=== PATIENT | female | born 1990 | race Caucasian/White ===

== ENCOUNTER 2016-09-24 12:13 | Emergency (ER) | payer SELFPAY ==
[2016-09-24] MEDS ORDERED: IBUPROFEN 800 MG TABLET PO ONE (14:27)
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
[2016-09-24 17:23] VITALS: BP 110/74
== END 2016-09-24 17:21 | disposition home or self-care (01) ==
LOC: ER 12:13
PROC: 2W38X1Z Immobilization of Right Upper Extremity using Splint (ICD-10-PCS; principal; 2016-09-24)
DX: S59.901A Unspecified injury of right elbow, initial encounter (principal); M25.521 Pain in right elbow; V00.121A Fall from non-in-line roller-skates, initial encounter; Y93.51 Activity, roller skating (inline) and skateboarding
CPT/HCPCS: 99283

== ENCOUNTER 2017-07-10 05:51 | Emergency (ER) | payer MEDICAID ==
[2017-07-10 06:40] LABS: APPEARANCE,URINE CLOUDY; BILIRUBIN,URINE NEGATIVE (NEGATIVE); COLOR,URINE YELLOW; GLUCOSE, URINE NEGATIVE (NEGATIVE); KETONES,URINE NEGATIVE (NEGATIVE); LEUKOCYTE ESTERASE,URINE LARGE (NEGATIVE); NITRITE,URINE NEGATIVE (NEGATIVE); PROTEIN,URINE NEGATIVE (NEGATIVE); URINE SPECIFIC GRAVITY 1.002; UROBILINOGEN,URINE NEGATIVE mg/dL (<2.0)
[2017-07-10] MEDS ORDERED: CEPHALEXIN 500 MG CAPSULE PO ONE (08:01)
--- NOTE | 2017-07-10 08:03 | ER Document Report ---
ED General - General Chief Complaint: Pain With Urination Stated Complaint: DIFFICULTY URINATING Time Seen by Provider: 07/10/17 07:31 TRAVEL OUTSIDE OF THE [place] IN LAST 30 DAYS: No - HPI Patient complains to provider of: Dysuria Notes: Patient coming in for evaluation of this year. Patient states she is approximately 13 weeks . Currently is following up with the health department for her care. Patient is a . Denies any vaginal bleeding vaginal discharge. Denies any fevers chills denies any recent antibiotics. Patient resting comfortably upon my evaluation - Related Data Allergies/Adverse Reactions: No Known Allergies Allergy (Verified 09/24/16 13:02) Past Medical History - Social History Smoking Status: Unknown if Ever Smoked Family History: Reviewed & Not Pertinent Renal/ Medical History: Denies: Hx Peritoneal Dialysis Psychiatric Medical History: Reports: Hx Depression - Immunizations Hx Diphtheria, Pertussis, Tetanus Vaccination: Yes Review of Systems - Review of Systems Constitutional: No symptoms reported EENT: No symptoms reported Cardiovascular: No symptoms reported Respiratory: No symptoms reported Gastrointestinal: No symptoms reported Genitourinary: Dysuria Female Genitourinary: No symptoms reported Musculoskeletal: No symptoms reported Skin: No symptoms reported Hematologic/Lymphatic: No symptoms reported Neurological/Psychological: No symptoms reported -: Yes All other systems reviewed and negative Physical Exam - Vital signs Vitals: Temp Pulse Resp BP Pulse Ox 98.1 F 113 H 18 127/78 H 100 07/10/17 05:51 07/10/17 05:51 07/10/17 05:51 07/10/17 05:51 07/10/17 05:51 Interpretation: Normal - General General appearance: Appears well, Alert - HEENT Head: Normocephalic, Atraumatic Eyes: Normal Pupils: PERRL - Respiratory Respiratory status: No respiratory distress Chest status: Nontender Breath sounds: Normal Chest palpation: Normal - Cardiovascular Rhythm: Regular Heart sounds: Normal auscultation Murmur: No - Abdominal Inspection: Normal Distension: No distension Bowel sounds: Normal Tenderness: Nontender Organomegaly: No organomegaly - Back Back: Normal, Nontender - Extremities General upper extremity: Normal inspection, Nontender, Normal color, Normal ROM , Normal temperature General lower extremity: Normal inspection, Nontender, Normal color, Normal ROM , Normal temperature, Normal weight bearing. No: Marissa's sign - Neurological Neuro grossly intact: Yes Cognition: Normal Orientation: AAOx4 [place] Coma Scale Eye Opening: Spontaneous Francis Coma Scale Verbal: Oriented Francis Coma Scale Motor: Obeys Commands [place] Coma Scale Total: 15 Speech: Normal Motor strength normal: LUE, RUE, LLE, RLE Sensory: Normal - Psychological Associated symptoms: Normal affect, Normal mood - Skin Skin Temperature: Warm Skin Moisture: Dry Skin Color: Normal Course - Re-evaluation Re-evalutation: 07/10/17 14:29 This ultrasound shows IUP with heart rate of 150. Urinalysis shows signs of infection. Patient will be started on Keflex urine culture was sent. Patient is encouraged follow-up with the health department or [facility]. Patient also encouraged take Tylenol for pain. - Vital Signs Vital signs: Temp Pulse Resp BP Pulse Ox 97.5 F 80 18 109/62 100 07/10/17 08:29 07/10/17 08:29 07/10/17 08:29 07/10/17 08:29 07/10/17 08:29 - Laboratory Laboratory results interpreted by me: 07/10/17 05:58 Urine Blood LARGE H Ur Leukocyte Esterase LARGE H Urine HCG, Qual POSITIVE H Discharge - Discharge Clinical Impression: UTI (urinary tract infection) Qualifiers: Urinary tract infection type: site unspecified Hematuria presence: without hematuria Qualified Code(s): N39.0 - Urinary tract infection, site not specified Qualifiers: Weeks of gestation: 13 weeks Qualified Code(s): Z3A.13 - 13 weeks gestation of Condition: Good Disposition: HOME, SELF-CARE Instructions: Cephalexin ([facility]), Urinary Tract Infection ([facility]) Additional Instructions: Your laboratory results today show that you are and show that you have a urinary tract infection. Please take antibiotics as prescribed. We will send her urine for culture the culture result would not be available for the next 48-72 hours. If we do need to change her antibiotics off the culture result we will call you. If you do not hear from us and finished her antibiotics as directed. Your heart tones today were 150 your looks to be healthy please follow-up with your [facility] or the health department Prescriptions: Cephalexin Monohydrate [Keflex 500 mg Capsule] 500 mg PO Q6H 7 Days capsule Forms: Return to Work Referrals: JUSTINO NATION MD [Primary Care Provider] - Follow up as needed
[2017-07-10 08:45] VITALS: BP 109/62
== END 2017-07-10 08:56 | disposition home or self-care (01) ==
LOC: ER 05:51
DX: O23.41 Unspecified infection of urinary tract in pregnancy, first trimester (principal); Z3A.13 13 weeks gestation of pregnancy
CPT/HCPCS: 81001; 81025; 99283

== ENCOUNTER 2017-08-17 00:41 | Emergency (ER) | payer MEDICAID ==
--- NOTE | 2017-08-17 01:02 | ER Document Report ---
ED General - General Chief Complaint: Vag Bleeding, +preg <12wks Stated Complaint: VAGINAL BLEEDING Time Seen by Provider: 08/17/17 00:53 Notes: Patient is a 26-year-old female who is approximately 18 weeks who presents with complaint of vaginal spotting after having sex today. No abdominal pain or cramping. No fevers. This is her third . First her pregnancies went on to having . She has had no further complications during this . She did have a ultrasound done a month ago which she said was normal. She is not yet seen the OB physician at [facility] and says she has been referred to them and is supposed to see them sometime next month. Her blood type is A+. She has no other complaints at this time. TRAVEL OUTSIDE OF THE [place] IN LAST 30 DAYS: No - Related Data Allergies/Adverse Reactions: No Known Allergies Allergy (Verified 09/24/16 13:02) Past Medical History - Social History Smoking Status: Never Smoker Frequency of alcohol use: None Drug Abuse: None Family History: Reviewed & Not Pertinent Renal/ Medical History: Denies: Hx Peritoneal Dialysis Psychiatric Medical History: Reports: Hx Depression - Immunizations Hx Diphtheria, Pertussis, Tetanus Vaccination: Yes Review of Systems - Review of Systems Notes: My Normal Review Basic REVIEW OF SYSTEMS: CONSTITUTIONAL : Denies fever, chills, or sweats. Denies recent illness. RESPIRATORY: Denies cough, cold, or chest congestion. Denies shortness of breath, difficulty breathing, or wheezing. GASTROINTESTINAL: Denies abdominal pain. Denies nausea, vomiting, or diarrhea. GENITOURINARY: Denies difficulty urinating, painful urination, burning, frequency, or blood in urine. FEMALE GENITOURINARY: vaginal spotting LMP: 18 weeks MUSCULOSKELETAL: Denies neck or back pain or joint pain or swelling. SKIN: Denies rash or skin lesions. NEUROLOGICAL: Denies altered mental status or loss of consciousness. Denies headache. Denies weakness or paralysis or loss of use of either side. Denies problems with gait or speech. Denies sensory or motor loss. ALL OTHER SYSTEMS REVIEWED AND NEGATIVE. Physical Exam - Vital signs Vitals: Temp Pulse Resp BP Pulse Ox 98 F 120 H 18 116/83 100 08/17/17 00:44 08/17/17 00:44 08/17/17 00:44 08/17/17 00:44 08/17/17 00:44 - Notes Notes: General Appearance: Well nourished, alert, cooperative, no acute distress, no obvious discomfort. Vitals: reviewed, See vital signs table. Head: no swelling or tenderness to the head Eyes: PERRL, EOMI, Conjuctiva clear Lungs: No wheezing, No rales, No rhonci, No accessory muscle use, good air exchange bilaterally. Heart: Normal rate, Regular rythm, No murmur, no rub Abdomen: Normal BS, soft, No rigidity, No abdominal tenderness, No guarding, no rebound Pelvic exam: Normal external genitalia. No blood in vaginal vault. No vaginal lacerations seen. Closed cervical os. Extremities: no edema. Skin: warm, dry, appropriate color, no rash Neuro: speech clear, oriented x 3, normal affect, responds appropriately to questions. Course - Re-evaluation Re-evalutation: 08/17/17 02:18 On reevaluation patient looks and feels improved. She did not have any continuous bleeding on pelvic exam. Ultrasound shows no concerning findings. I feel she is safe to be discharged home. I encourage the patient and her to avoid sexual activity until cleared by her OB physician. Also informed her to not do exertional activities or heavy lifting. Encouraged her return to ER if she has recurrent worsening bleeding, pain, or she feels unwell. Patient and agree with plan and patient will be discharged home. Dictation of this chart was performed using voice recognition software; therefore, there may be some unintended grammatical errors. - Vital Signs Vital signs: Temp Pulse Resp BP Pulse Ox 98 F 120 H 18 116/83 100 08/17/17 00:44 08/17/17 00:44 08/17/17 00:44 08/17/17 00:44 08/17/17 00:44 Discharge - Discharge Clinical Impression: Vaginal bleeding during Condition: Good Disposition: HOME, SELF-CARE Additional Instructions: Please avoid sexual activity, exertional activities, and heavy lifting until cleared by your OB physician. [facility] to arrange a close follow up appointment. please return to the ER immediately if you have recurrent worsening bleeding, abdominal pain, or if you feel unwell. Referrals: JUSTINO NATION MD [Primary Care Provider] - 08/19/17
--- NOTE | 2017-08-17 02:03 | RADIOLOGY REPORT (SQ) ---
EXAM DESCRIPTION: U/S OB 14+ TA/1 GEST W/DOPPLER CLINICAL HISTORY: Vaginal bleeding. COMPARISON: None available TECHNIQUE: Second trimester obstetrical ultrasound with transabdominal imaging. FINDINGS: LVP: 4.62 cm. Placenta: Anterior. presentation: Vertex Cervical length: 3.4 cm and closed. measurements: Head circumference: 15.41 cm, compatible with an estimated gestational age of 18 weeks, 3 days. Abdominal circumference: 13.61 cm compatible with an estimated gestational age of 19 weeks, 0 days. Biparietal diameter: 4.28 cm compatible with an estimated gestational age of 19 weeks, 0 day. Femur length: 2.83 cm compatible with an estimated gestational age of 18 weeks, 5 days. HC/AC: 1.13 FL/BPD: 66.1 FL/HC: 18.4 FL/AC 20.8 CI: 79.8 Estimated weight of 260 g LMP: 04/13/2017. Ultrasound age: 18 weeks and 6 days. Estimated delivery date of 01/12/2018. organ survey. heart rate of 147 beats for minute. Four-chamber heart: Visualized. Three-vessel CORD: Visualized. Cord insertion: Visualized and within normal limits. Kidneys: Not visualized. Bladder:Visualized and no abnormalities identified. Stomach: Visualized and no abnormalities identified. Spine: No abnormalities identified. A cine loop was not performed for complete evaluation. Lateral ventricles: Visualized and no abnormality identified. Cerebellum: Visualized and no abnormality identified. Cisterna magna: Visualized and no abnormality identified. Upper extremities: Visualized and no abnormality identified. Large series: Visualized and no abnormality identified. Adnexa: Ovaries are not identified. IMPRESSION: 1. Single live intrauterine with estimated gestational age of 18 weeks, 6 days and heart rate of 147 beats for minute. 2. No definite abnormalities identified on organ survey. The kidneys are not definitely visualized.
[2017-08-17 02:31] VITALS: BP 103/65
== END 2017-08-17 02:31 | disposition home or self-care (01) ==
LOC: ER 00:41
DX: O26.852 Spotting complicating pregnancy, second trimester (principal); Z3A.18 18 weeks gestation of pregnancy
CPT/HCPCS: 76805; 93976; 99284

== ENCOUNTER 2017-09-11 19:10 | Outpatient (CLI) | payer MEDICAID ==
[2017-09-11 19:49] LABS: BACTERIA (WET MOUNT) 3+ BACTERIA SEEN; RBCS (WET MOUNT) RARE RBCS SEEN; T.VAGINALIS (WET MOUNT) NO TRICHOMONAS SEEN; WBCS (WET MOUNT) 1+ WBCS SEEN; YEAST (WET MOUNT) NO YEAST SEEN
[2017-09-11 19:54] LABS: APPEARANCE,URINE CLEAR; BILIRUBIN,URINE NEGATIVE (NEGATIVE); COLOR,URINE COLORLESS; GLUCOSE, URINE NEGATIVE (NEGATIVE); KETONES,URINE NEGATIVE (NEGATIVE); LEUKOCYTE ESTERASE,URINE NEGATIVE (NEGATIVE); NITRITE,URINE NEGATIVE (NEGATIVE); PROTEIN,URINE NEGATIVE (NEGATIVE); URINE SPECIFIC GRAVITY 1.002; UROBILINOGEN,URINE NEGATIVE mg/dL (<2.0)
[2017-09-11 20:02] LABS: AMNISURE (ROM) NEGATIVE (NEGATIVE)
[2017-09-11 20:16] LABS: URINE AMPHETAMINES SCREEN NEGATIVE; URINE BARBITURATES SCREEN NEGATIVE; URINE BENZODIAZEPINES SCREEN NEGATIVE; URINE COCAINE SCREEN NEGATIVE; URINE MARIJUANA (THC) SCREEN NEGATIVE; URINE METHADONE SCREEN NEGATIVE; URINE PHENCYCLIDINE SCREEN NEGATIVE
--- NOTE | 2017-09-11 21:36 | RADIOLOGY REPORT (SQ) ---
EXAM DESCRIPTION: U/S OB LIMITED COMPLETED DATE/TIME: 09/11/2017 9:27 pm REASON FOR STUDY: possible SROM COMPARISON: None. TECHNIQUE: Limited transabdominal grayscale ultrasound for evaluation of specific requested obstetri sabi parameters. LIMITATIONS: None. FINDINGS: CERVICAL LENGTH: 4.2 cm. Closed. NELLY: 15.5 cm. Cm. FHR: 153 beats per minute. PRESENTATION: Cephalic. OTHER: No other significant findings. IMPRESSION: LIMITED OBSTETRICAL ULTRASOUND WITH MEASURED PARAMETERS DELINEATED ABOVE. Trimester of : Second trimester - 13 weeks 1 day to 27 weeks 6 days. TECHNICAL DOCUMENTATION: JOB ID: [id number] [employer]- All Rights Reserved Reading location - IP/workstation name: [email or web address]
== END 2017-09-11 21:41 | disposition home or self-care (01) ==
LOC: LC 19:10
PROVIDERS: ATTEND Student in an Organized Health Care Education/Training Program
PROC: 4A1HXCZ Monitoring of Products of Conception, Cardiac Rate, External Approach (ICD-10-PCS; principal; 2017-09-11)
DX: Z36.89 Encounter for other specified antenatal screening (principal)
CPT/HCPCS: 59899; 84112; 87210; 81001; 80307; 76815; Q0114

== ENCOUNTER 2017-11-20 14:49 | Outpatient (CLI) | payer MEDICAID ==
[2017-11-20 15:37] LABS: APPEARANCE,URINE CLEAR; BILIRUBIN,URINE NEGATIVE (NEGATIVE); COLOR,URINE YELLOW; GLUCOSE, URINE NEGATIVE (NEGATIVE); KETONES,URINE NEGATIVE (NEGATIVE); LEUKOCYTE ESTERASE,URINE SMALL (NEGATIVE); NITRITE,URINE NEGATIVE (NEGATIVE); PROTEIN,URINE NEGATIVE (NEGATIVE); URINE SPECIFIC GRAVITY 1.008; UROBILINOGEN,URINE NEGATIVE mg/dL (<2.0)
== END 2017-11-20 15:26 | disposition home or self-care (01) ==
LOC: LC 14:49
PROVIDERS: ATTEND Obstetrics & Gynecology
PROC: 4A1HXCZ Monitoring of Products of Conception, Cardiac Rate, External Approach (ICD-10-PCS; principal; 2017-11-20)
DX: O36.8130 Decreased fetal movements, third trimester, not applicable or unspecified (principal); Z3A.31 31 weeks gestation of pregnancy
CPT/HCPCS: 59025; 81001

== ENCOUNTER 2018-01-09 23:40 | Inpatient (IN) | payer MEDICAID ==
[2018-01-09] MEDS ORDERED: RINGERS SOLUTION,LACTATED 1,000 ML IV PRN (23:56)
[2018-01-09] MEDS ORDERED: RINGERS SOLUTION,LACTATED 1,000 ML IV ONE (23:56)
[2018-01-09] MEDS ORDERED: LIDOCAINE 1% INJ-PF (10 MG/ML) 30 ML SDV ONE (23:59)
[2018-01-09] MEDS ORDERED: MISOPROSTOL 0.2 MG TABLET ONE (23:59)
[2018-01-09] MEDS ORDERED: OXYTOCIN/NORMAL SALINE 20 UNIT/1,000 ML RTUINJ ONE (23:59)
[2018-01-10] MEDS ORDERED: MISOPROSTOL 0.2 MG TABLET ONE (00:02)
[2018-01-10 00:20] LABS: ABSOLUTE EOSINOPHILS # (AUTO) 0.1 10^3/uL (0.0-0.6); ABSOLUTE LYMPHOCYTES (AUTO) 1.7 10^3/uL (0.5-4.7); ABSOLUTE MONOCYTES (AUTO) 0.9 10^3/uL (0.1-1.4); ABSOLUTE NEUT (AUTO) 6.2 10^3/uL (1.7-8.2); BASOPHILS % (AUTO) 0.3 % (0-2); EOSINOPHILS % (AUTO) 0.7 % (0-6); HEMATOCRIT 34.1 % (36.0-47.0); HEMOGLOBIN 11.7 g/dL (12.0-15.5); LYMPHOCYTES % (AUTO) 19.6 % (13-45); MEAN CORPUSCULAR HEMOGLOBIN 29.8 pg (27.0-33.4); MEAN CORPUSCULAR HGB CONC 34.4 g/dL (32.0-36.0); MEAN CORPUSCULAR VOLUME 87 fl (80-97); MONOCYTES % (AUTO) 9.6 % (3-13); PLATELET COUNT 120 10^3/uL (150-450); RED BLOOD COUNT 3.94 10^6/uL (3.72-5.28); RED CELL DISTRIBUTION WIDTH 13.5 % (11.5-14.0); SEGMENTED NEUTROPHILS % (AUTO) 69.8 % (42-78); TOTAL CELLS COUNTED % (AUTO) 100 %; WHITE BLOOD COUNT 8.9 10^3/uL (4.0-10.5)
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
[2018-01-10] MEDS ORDERED: OXYTOCIN/NORMAL SALINE 20 UNIT/1,000 ML RTUINJ IV PRN (01:20)
[2018-01-10] MEDS ORDERED: ZOLPIDEM TARTRATE 5 MG TABLET PO PRN (01:20)
[2018-01-10] MEDS ORDERED: DIPH/PERTUSS(ACELL)/TETANUS VAC/PF 0.5 ML SYR (>=10YO) IM PRN (01:20)
[2018-01-10] MEDS ORDERED: ACETAMINOPHEN 650 MG SUPP.RECT PR PRN (01:20)
[2018-01-10] MEDS ORDERED: PROMETHAZINE HCL 25 MG SUPP.RECT PR PRN (01:20)
[2018-01-10] MEDS ORDERED: DIPHENHYDRAMINE HCL 25 MG CAPSULE PO PRN (01:20)
[2018-01-10] MEDS ORDERED: NA PHOS,M-B/NA PHOS,DI-BA (ADULT) 133 ML ENEMA PR PRN (01:20)
[2018-01-10] MEDS ORDERED: BENZOCAINE/MENTHOL AEROSOL SPRAY 56 ML TOP PRN (01:20)
[2018-01-10] MEDS ORDERED: GLYCERIN/WITCH HAZEL LEAF 1 EACH MED..PAD TP PRN (01:20)
[2018-01-10] MEDS ORDERED: MISOPROSTOL 0.2 MG TABLET PR PRN (01:20)
[2018-01-10] MEDS ORDERED: MAGNESIUM HYDROXIDE SUSP 30 ML UDCUP PO PRN (01:20)
[2018-01-10] MEDS ORDERED: PSEUDOEPHEDRINE HCL 30 MG TABLET PO PRN (01:20)
[2018-01-10] MEDS ORDERED: ACETAMINOPHEN WITH CODEINE #3 TABLET PO PRN ×2 (01:20)
[2018-01-10] MEDS ORDERED: DIBUCAINE 1% OINTMENT 28 GM TP PRN (01:20)
[2018-01-10] MEDS ORDERED: PROMETHAZINE HCL 25 MG TABLET PO PRN (01:20)
[2018-01-10] MEDS ORDERED: MEASLES,MUMPS&RUBELLA VACC/PF 0.5 ML VIAL SUBCUT PRN (01:20)
[2018-01-10] MEDS ORDERED: PROMETHAZINE HCL INJ 25 MG/1 ML VIAL IV PRN (01:20)
[2018-01-10] MEDS ORDERED: IBUPROFEN 800 MG TABLET ONE (01:48)
--- NOTE | 2018-01-10 02:34 | Delivery Summary ---
Del Sum A-C Datetime Report Generated by CPN: 01/10/2018 02:34 DELIVERY PERSONNEL DELIVERY PERSONNEL: [id number] Delivery Doctor:: Susie Hutchins MD Labor and Delivery Nurse:: Jaleesa Weinstein RNdirect marketing specialist Nurse:: Sarah Beth Lieberman RN Fire Adjuster/CONSUMER MARKETING SPECIALIST: Anali Berry, COMMERCIAL SHRIMPING CAPTAIN Additional Personnel: : Leda Phan RN MATERNAL INFORMATION Delivery Anesthesia: None Medications After Delivery: Other-Please Comment Meds After Delivery Comment: Cytotec 1000mcg given Pitocin 20Unit IM Maternal Complications: Precipitous Labor (<3hrs) Provider Comments: VMI delivered in SHAY presentation. No nuchal cord. Shoulders and body delivered without difficulty. Cord doubly clamped and cut and to maternal abd. placenta delivered intact spontaneously. FF at U. No IV. IM pitocin and 1000mcg [place] cytotec given. Mother and baby stable upon provider leaving the room. LABOR SUMMARY EDC: 01/18/2018 00:00 No. Babies in Womb: 1 Attempted: No Labor Anesthesia: None LABOR INFORMATION Reason for Induction: Not Applicable Onset of Labor: 01/09/2018 23:54 Complete Dilatation: 01/10/2018 00:31 Oxytocin: N/A Group B Beta Strep: negative Antibiotics # of Doses: N/A Antibiotics Time of Last Dose: N/A Name of Antibiotic Given: N/A Steroids Given: None Reason Steroids Not Administered: Not Applicable MEMBRANES Membranes Rupture Method: Spontaneous Rupture of Membranes: 01/10/2018 00:28 Length of Rupture (hr): 0.12 Amniotic Fluid Color: Bloody Amniotic Fluid Amount: Small Amniotic Fluid Odor: Normal STAGES OF LABOR Stage 1 hr: 0 Stage 1 min: 37 Stage 2 hr: 0 Stage 2 min: 4 Stage 3 hr: 0 Stage 3 min: 3 Total Time in Labor hr: 0 Total Time in Labor min: 44 VAGINAL DELIVERY Episiotomy: None Laceration #1: Perineal Laceration Extension #1: First Degree Laceration Repair: Yes Laceration Repair Note: 1st degree repaired in usual fashion. Sponge Count Correct: Yes Sharps Count Correct: Yes CSECTION DELIVERY Primary Indication: N/A Secondary Indication: Repeat Elective CSection Incidence: N/A Labor: N/A Elective: N/A CSection Incision: N/A BABY A INFORMATION Infant Delivery Date/Time: 01/10/2018 00:35 Method of Delivery: Vaginal Born in Route : No : N/A Forceps: N/A Vacuum Extraction: N/A Shoulder Dystocia : No PRESENTATION/POSITION BABY A Presentation: Cephalic Cephalic Presentation: Vertex Vertex Position: Left Occipital Anterior Breech Presentation: N/A PLACENTA INFORMATION BABY A Placenta Delivery Time : 01/10/2018 00:38 Placenta Method of Delivery: Spontaneous Placenta Status: Delivered SCORES BABY A Heart Rate 1 min: >100 bpm Resp Effort 1 min: Good Cry Reflex Irritability 1 min: Cough or Sneeze or Pulls Away Muscle Tone 1 min: Active Motion Color 1 min: Body [place], Extremities Blue SCORE 1 MIN: 9 Heart Rate 5 min: >100 bpm Resp Effort 5 min: Good Cry Reflex Irritability 5 min: Cough or Sneeze or Pulls Away Muscle Tone 5 min: Active Motion Color 5 min: Body [place], Extremities Blue SCORE 5 MIN: 9 INFORMATION BABY A Gestational Age at Delivery: 38.6 Gestational Status: Early Term- 37- 38.6 Weeks Infant Outcome : Liveborn Condition : Stable Sex: Male IDENTIFICATION BABY A Verification Date/Time: 01/10/2018 00:44 ID Band Number: [id number] Mother's Name Verified: Yes RN Verifying : E. Jilek RN/ F. Berry WEIGHT/LENGTH BABY A Infant Birthweight (gm): 3510 Weight (lb): 7 Weight (oz): 12 Infant Length (in): 19.50 Infant Length (cm): 49.53 CORD INFORMATION BABY A No. Cord Vessels: 3 Nuchal Cord : N/A Cord Blood Taken: Yes-For Eval (Mom's Blood Type - or O+) Infant Suction: Mouth ASSESSMENT BABY A Skin to Skin: Yes BABY B INFORMATION : N/A SIGNATURES Signature: with User ID: [email or web address]
[2018-01-10] MEDS: IBUPROFEN 800 MG TABLET PO SCH ×3 (06:20→22:00)
--- NOTE | 2018-01-10 10:25 | PDOC PROGRESS REPORT ---
Subjective-OB Progress Note for:: 01/10/18 Subjective: Delivery day, doing well, no complaints this morning, states has been up out of the bed, breast feeding Physical Exam (OB) Vital Signs: Temp Pulse Resp BP Pulse Ox 99.0 F 72 16 112/62 100 01/10/18 07:39 01/10/18 07:39 01/10/18 07:39 01/10/18 07:39 01/10/18 07:39 Intake & Output 01/09/18 01/10/18 01/11/18 06:59 06:59 06:59 Weight 79.3 kg - General General Appearance: Appears well In distress: None - PIH/Pre-Eclampsia DTR's: 1 + Clonus: Negative Headache: Absent Epigastric Pain: No Visual Changes: No - Lochia Lochia Amount: Small 10-25 ml Lochia Color: Rubra/Red - Abdomen Description: Soft, Round Hernia Present: No Fundal Description: Firm, Midline Fundal Height: u/u - u/2 - Respiratory Respiratory Status: No respiratory distress - Extremities Upper extremity: Normal inspection Lower extremities: Normal inspection - Neurological Cognition: Normal Orientation: AAOx4 - Psychological Associated symptoms: Normal affect, Normal mood Objective-Diagnostic Laboratory: 01/10/18 00:04 01/10/18 01/10/18 00:04 00:04 WBC 8.9 RBC 3.94 Hgb 11.7 L Hct 34.1 L MCV 87 MCH 29.8 MCHC 34.4 RDW 13.5 Plt Count 120 L Seg Neutrophils % 69.8 Lymphocytes % 19.6 Monocytes % 9.6 Eosinophils % 0.7 Basophils % 0.3 Absolute Neutrophils 6.2 Absolute Lymphocytes 1.7 Absolute Monocytes 0.9 Absolute Eosinophils 0.1 Absolute Basophils 0.0 Blood Type O POSITIVE Antibody Screen NEGATIVE Assessment and Plan(PN) - Assessment and Plan (1) Obstetrical laceration, first degree Is this a current diagnosis for this admission?: Yes (2) Precipitous delivery Is this a current diagnosis for this admission?: Yes (3) Vaginal delivery Is this a current diagnosis for this admission?: Yes - Time Spent with Patient Time with patient: Less than 15 minutes Medications reviewed and adjusted accordingly: Yes - Disposition Anticipated Discharge: Home Within: within 48 hours
[2018-01-10] MEDS: FERROUS SULFATE 325 MG TABLET PO SCH ×2 (10:42→17:25)
[2018-01-10] MEDS: SENNOSIDES/DOCUSATE 8.6-50 MG 1 EACH TABLET PO SCH (10:42)
[2018-01-10] MEDS: PRENATAL VITAMIN W DHA CAPSULE PO SCH (10:42)
[2018-01-10] MEDS: DOCUSATE SODIUM 100 MG CAPSULE PO SCH ×2 (10:42→17:25)
[2018-01-10] MEDS: FAMOTIDINE 20 MG TABLET PO SCH ×2 (11:18→22:00)
[2018-01-11] MEDS: IBUPROFEN 800 MG TABLET PO SCH ×3 (05:11→22:09)
[2018-01-11 07:51] LABS: HEMATOCRIT 34.6 % (36.0-47.0); HEMOGLOBIN 11.7 g/dL (12.0-15.5); MEAN CORPUSCULAR HEMOGLOBIN 29.8 pg (27.0-33.4); MEAN CORPUSCULAR HGB CONC 33.7 g/dL (32.0-36.0); MEAN CORPUSCULAR VOLUME 88 fl (80-97); PLATELET COUNT 101 10^3/uL (150-450); RED BLOOD COUNT 3.92 10^6/uL (3.72-5.28); RED CELL DISTRIBUTION WIDTH 13.6 % (11.5-14.0); WHITE BLOOD COUNT 7.3 10^3/uL (4.0-10.5)
[2018-01-11] MEDS: PRENATAL VITAMIN W DHA CAPSULE PO SCH (09:32)
[2018-01-11] MEDS: FERROUS SULFATE 325 MG TABLET PO SCH ×2 (09:32→17:08)
[2018-01-11] MEDS: FAMOTIDINE 20 MG TABLET PO SCH ×2 (09:32→22:09)
[2018-01-11] MEDS: SENNOSIDES/DOCUSATE 8.6-50 MG 1 EACH TABLET PO SCH (09:32)
[2018-01-11] MEDS: DOCUSATE SODIUM 100 MG CAPSULE PO SCH ×2 (09:32→17:08)
[2018-01-12] MEDS: IBUPROFEN 800 MG TABLET PO SCH (05:24)
--- NOTE | 2018-01-12 09:25 | PDOC PROGRESS REPORT ---
Subjective-OB Progress Note for:: 01/12/18 Subjective: PP Day #2, , O+ Rubella immune, doing well, no complaints Physical Exam (OB) Vital Signs: Temp Pulse Resp BP Pulse Ox 98.2 F 77 18 121/74 100 01/12/18 08:00 01/12/18 08:00 01/12/18 08:00 01/12/18 08:00 01/12/18 08:00 Intake & Output 01/11/18 01/12/18 01/13/18 06:59 06:59 06:59 Intake Total 400 890 Balance 400 890 - General General Appearance: Appears well - PIH/Pre-Eclampsia DTR's: 2 + Clonus: Negative Headache: Absent Epigastric Pain: No Visual Changes: No - Lochia Lochia Amount: Scant < 10 ml Lochia Color: Rubra/Red - Abdomen Description: Tender, Soft, Round Hernia Present: No Fundal Description: Firm, Midline Fundal Height: u/u - u/2 - Respiratory Respiratory Status: No respiratory distress - Genitourinary Genitourinary Note: voiding - Extremities Upper extremity: Normal inspection Lower extremities: Normal inspection - Neurological Cognition: Normal Orientation: AAOx4 - Psychological Associated symptoms: Normal affect, Normal mood Objective-Diagnostic Laboratory: 01/11/18 07:35 Assessment and Plan(PN) - Assessment and Plan (1) Obstetrical laceration, first degree Is this a current diagnosis for this admission?: Yes (2) Precipitous delivery Is this a current diagnosis for this admission?: Yes (3) Vaginal delivery Is this a current diagnosis for this admission?: Yes - Time Spent with Patient Time with patient: Less than 15 minutes Medications reviewed and adjusted accordingly: Yes - Disposition Anticipated Discharge: Home
--- NOTE | 2018-01-12 09:32 | PDOC DISCHARGE SUMMARY ---
Final Diagnosis Discharge Date: 01/12/18 - Final Diagnosis (1) Obstetrical laceration, first degree Is this a current diagnosis for this admission?: Yes (2) Precipitous delivery Is this a current diagnosis for this admission?: Yes (3) Vaginal delivery Is this a current diagnosis for this admission?: Yes Discharge Data - Discharge Medication Prescriptions: Ibuprofen [Motrin 800 mg Tablet] 800 mg PO Q8 #30 tablet Home Medications: No122/Iron/Folic Acid [ Multi Tablet] 1 each PO DAILY 11/20/17 Ibuprofen [Motrin 800 mg Tablet] 800 mg PO Q8 #30 tablet 01/12/18 Reason(s) for Admission: Onset of Labor Procedures: Ultrasound Intrapartum Procedure(s): Spontaneous Vaginal Delivery Complication(s): Laceration-Vaginal Laceration-Degree: 1st - Diagnosis Test Laboratory: Temp Pulse Resp BP Pulse Ox 98.2 F 77 18 121/74 100 01/12/18 08:00 01/12/18 08:00 01/12/18 08:00 01/12/18 08:00 01/12/18 08:00 01/10/18 01/11/18 00:04 07:35 RBC 3.94 3.92 Hgb 11.7 L 11.7 L Hct 34.1 L 34.6 L - Discharge information/Instructions Discharge Activity: Activity As Tolerated Discharge Diet: As Tolerated, Regular Disposition: HOME, SELF-CARE Follow up with: [facility] in: 3, Weeks
[2018-01-12] MEDS: SENNOSIDES/DOCUSATE 8.6-50 MG 1 EACH TABLET PO SCH (09:56)
[2018-01-12] MEDS: FERROUS SULFATE 325 MG TABLET PO SCH (09:56)
[2018-01-12] MEDS: FAMOTIDINE 20 MG TABLET PO SCH (09:56)
[2018-01-12] MEDS: DOCUSATE SODIUM 100 MG CAPSULE PO SCH (09:56)
[2018-01-12] MEDS: PRENATAL VITAMIN W DHA CAPSULE PO SCH (09:56)
[2018-01-12 10:33] VITALS: BP 123/74
== END 2018-01-12 12:26 | disposition home or self-care (01) | DRG 775 ==
LOC: LC 23:40 → LR 23:57 → 2S 01-10 03:00
PROVIDERS: ADMIT Student in an Organized Health Care Education/Training Program; ATTEND Student in an Organized Health Care Education/Training Program
PROC: 4A1HXCZ Monitoring of Products of Conception, Cardiac Rate, External Approach (ICD-10-PCS; 2018-01-09)
PROC: 10E0XZZ Delivery of Products of Conception, External Approach (ICD-10-PCS; principal; 2018-01-10)
PROC: 0HQ9XZZ Repair Perineum Skin, External Approach (ICD-10-PCS; 2018-01-10)
DX: O62.3 Precipitate labor (principal); O70.0 First degree perineal laceration during delivery; O99.344 Other mental disorders complicating childbirth; F32.9 Major depressive disorder, single episode, unspecified; Z3A.38 38 weeks gestation of pregnancy; Z37.0 Single live birth
CPT/HCPCS: 36415; 85025; 85027; 86592; 86850; 86900; 86901; J2590; J3490

== ENCOUNTER 2019-11-27 09:09 | Emergency (ER) | payer MEDICAID ==
[2019-11-27 09:54] LABS: ABSOLUTE EOSINOPHILS # (AUTO) 0.1 10^3/uL (0.0-0.6); ABSOLUTE LYMPHOCYTES (AUTO) 1.2 10^3/uL (0.5-4.7); ABSOLUTE MONOCYTES (AUTO) 0.5 10^3/uL (0.1-1.4); ABSOLUTE NEUT (AUTO) 2.8 10^3/uL (1.7-8.2); BASOPHILS % (AUTO) 0.4 % (0-2); EOSINOPHILS % (AUTO) 1.6 % (0-6); HEMATOCRIT 37.7 % (36.0-47.0); HEMOGLOBIN 12.6 g/dL (12.0-15.5); LYMPHOCYTES % (AUTO) 25.5 % (13-45); MEAN CORPUSCULAR HEMOGLOBIN 28.7 pg (27.0-33.4); MEAN CORPUSCULAR HGB CONC 33.5 g/dL (32.0-36.0); MEAN CORPUSCULAR VOLUME 86 fl (80-97); MONOCYTES % (AUTO) 10.3 % (3-13); PLATELET COUNT 156 10^3/uL (150-450); RED BLOOD COUNT 4.39 10^6/uL (3.72-5.28); SEGMENTED NEUTROPHILS % (AUTO) 62.2 % (42-78); TOTAL CELLS COUNTED % (AUTO) 100 %; WHITE BLOOD COUNT 4.6 10^3/uL (4.0-10.5)
[2019-11-27 10:10] LABS: APPEARANCE,URINE CLEAR; BILIRUBIN,URINE NEGATIVE (NEGATIVE); COLOR,URINE YELLOW; GLUCOSE, URINE NEGATIVE (NEGATIVE); KETONES,URINE NEGATIVE (NEGATIVE); LEUKOCYTE ESTERASE,URINE NEGATIVE (NEGATIVE); NITRITE,URINE NEGATIVE (NEGATIVE); PROTEIN,URINE NEGATIVE (NEGATIVE); URINE SPECIFIC GRAVITY 1.019; UROBILINOGEN,URINE NEGATIVE mg/dL (<2.0)
[2019-11-27 10:12] LABS: ALBUMIN 4.5 g/dL (3.5-5.0); ALKALINE PHOSPHATASE 45 U/L (38-126); ANION GAP 6 (5-19); ASPARTATE AMINO TRANSFERASE 20 U/L (14-36); BILIRUBIN,TOTAL 0.4 mg/dL (0.2-1.3); BLOOD UREA NITROGEN 18 mg/dL (7-20); CALCIUM 8.7 mg/dL (8.4-10.2); CARBON DIOXIDE 27 mmol/L (22-30); CHLORIDE 104 mmol/L (98-107); GLUCOSE 84 mg/dL (75-110); POTASSIUM 3.8 mmol/L (3.6-5.0); TOTAL PROTEIN 7.4 g/dL (6.3-8.2)
--- NOTE | 2019-11-27 11:22 | RADIOLOGY REPORT (SQ) ---
EXAM DESCRIPTION: U/S OB TRANSVAGINAL W/O DOP IMAGES COMPLETED DATE/TIME: 11/27/2019 10:44 am REASON FOR STUDY: Vag. bleed 6 weeks EGA by dates COMPARISON: None. TECHNIQUE: Endovaginal static and realtime grayscale images acquired of the pelvis. Additional selec sanya spectral and color Doppler images recorded. All images stored on PACs. bHCG: Not available CLINICAL DATES: Last menses 10/11/2019, EGA 6 weeks 5 days LIMITATIONS: None. FINDINGS: UTERUS: No visualized intrauterine . Uterus is 10 x 6 x 6 cm in size, endometria l stripe about 16 mm in thickness. No intrauterine gestational sac is identified. RIGHT ADNEXA: Normal ovary with normal vascular flow. Right ovary 3.3 x 3.1 x 1.6 cm. No adnexal free fluid. No adnexal masses. LEFT ADNEXA: Normal ovary with normal vascular flow. Left ovary 2.9 x 3 x 1.9 cm. No adnexal free fluid. No adnexal masses. FREE FLUID: Small amount of cul-de-sac free fluid without debris. OTHER: Findings discussed with Dr. Whiting in the emergency room. IMPRESSION: NO VISUALIZED INTRA- OR EXTRAUTERINE . ECTOPIC CANNOT BE EXCLUDED. FOLLOW-UP ULTRASOUND AND SERIAL BHCG LEVELS STRONGLY RECOMMENDED TO ACCURATELY ASSESS STATU S. TECHNICAL DOCUMENTATION: JOB ID: [id number] [employer]- All Rights Reserved Reading location - IP/workstation name: [email or web address]
--- NOTE | 2019-11-27 14:08 | ER Document Report ---
ED General - General Chief Complaint: Vag Bleeding, +preg <12wks Stated Complaint: VAGINAL BLEEDING Time Seen by Provider: 11/27/19 10:09 Primary Care Provider: BRANDON LYNN PA-C [Primary Care Provider] - Follow up as needed TRAVEL OUTSIDE OF THE [place] IN LAST 30 DAYS: No - HPI Notes: Chief complaint: Vaginal bleeding in early HPI: 29-year-old female 3 para 2 at approximately 6 weeks EGA by dates presents with 3-day history of intermittent vaginal bleeding. She denies any abdominal pain, fever, chills, nausea, vomiting or dysuria. Patient says she is been in for initial administrative visit at [facility] in [facility] but has not yet had an ultrasound or any other care. She is taking a vitamin and no other medication. 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 Apparently she felt extremely nauseated and shortly thereafter began having some vaginal spotting. The following day she had a "ramirez of blood" from the vaginal area Which was very brief and she was not aware of passing any tissue at that time. Since then she has had just some light spotting. She denies any problems with her earlier pregnancies. She reports no known allergies. - Related Data Allergies/Adverse Reactions: No Known Allergies Allergy (Verified 11/27/19 09:32) Home Medications: vitamins Past Medical History - General Information source: Patient - Social History Smoking Status: Never Smoker Frequency of alcohol use: None Drug Abuse: None Family History: Reviewed & Not Pertinent Patient has homicidal ideation: No Renal/ Medical History: Denies: Hx Peritoneal Dialysis Psychiatric Medical History: Reports: Hx Depression - Immunizations Hx Diphtheria, Pertussis, Tetanus Vaccination: Yes Review of Systems - Review of Systems Notes: Constitutional: Negative for fever. HENT: Negative for sore throat. Eyes: Negative for visual changes. Cardiovascular: Negative for chest pain. Respiratory: Negative for shortness of breath. Gastrointestinal: Negative for abdominal pain, vomiting or diarrhea. Genitourinary: As per HPI. Musculoskeletal: Negative for back pain. Skin: Negative for rash. Neurological: Negative for headaches, weakness or numbness. 10 point ROS negative except as marked above and in HPI. Physical Exam - Vital signs Vitals: Temp Pulse Resp BP Pulse Ox 98.5 F 100 14 102/65 100 11/27/19 09:14 11/27/19 09:14 11/27/19 09:14 11/27/19 09:14 11/27/19 09:14 - Notes Notes: GENERAL: Well-developed well-nourished female of approximately stated age appearing in no acute distress. SKIN: Good turgor no rashes. HEAD: Normocephalic atraumatic. EYES: PERRLA. EOMI. Conjunctivae and sclerae clear. EARS: CANALS AND TMS CLEAR. NOSE: CLEAR. MOUTH: Moist mucosa. Good dentition. No stridor or edema. No drooling. NECK: Supple. No masses or thyromegaly. No adenopathy. Carotids 2+ without bruits. No JVD. BACK: Symmetrical without tenderness. CHEST: Respirations unlabored. Breath sounds clear and symmetrical. HEART: Regular rhythm. No murmur gallop or rub. ABDOMEN: Soft nontender without masses, organomegaly or rebound. Bowel sounds normally active. No bruits. PELVIC: Normal external genitalia and hair distribution. Small amount of dark discharge in the vaginal vault. No active bleeding. Cervical loss is closed. The uterus is mildly enlarged on bimanual exam with softening of the corpus. No adnexal masses or adnexal tenderness. No cervical motion tenderness. EXTREMITIES: No edema. No calf tenderness. Cap refill less than 1.5 seconds. Dorsalis pedis and posterior tibial pulses 3+ and symmetrical. NEUROLOGICAL: GCS 15. Alert and oriented x3. Normal gait. Fluent speech. Cranial nerves II through XII intact. Sensorimotor and cerebellar normal. Norm al tone. PSYCHIATRIC: Appropriate affect. Course - Re-evaluation Re-evalutation: 11/27/19 14:08 Patient is Rh+. Quantitative beta-hCG is 175. Transvaginal pelvic ultrasound per radiologist shows no IUP with some ill-defined debris in the uterine cavity. There is no obvious adnexal mass on the ultrasound. Findings have been reviewed with the on-call physician for [facility], Dr. Deb Chao, by telephone. We agree that this is probably spontaneous miscarriage/ demise versus less likely possibility of an ectopic . Is further agreed that we will send the patient out with ectopic precautions and have her return in 48 hours for repeat quantitative beta hCG to be drawn here. They will then follow the patient up in 72 hours in the office. Findings, clinical impression and plan of treatment have been discussed with patient/family. Understanding of current findings and recommendations has been acknowledged by them and there is agreement regarding disposition and follow-up. - Vital Signs Vital signs: Temp Pulse Resp BP Pulse Ox 98.5 F 100 14 102/65 100 11/27/19 09:14 11/27/19 09:14 11/27/19 09:14 11/27/19 09:14 11/27/19 09:14 - Laboratory Result Diagrams: 11/27/19 09:45 11/27/19 09:45 Laboratory results interpreted by me: 11/27/19 11/27/19 11/27/19 09:45 09:45 09:45 Creatinine 0.49 L Beta HCG, Quant 174.70 H Urine Blood MODERATE H Urine HCG, Qual POSITIVE H Discharge - Discharge Clinical Impression: Vaginal bleeding affecting early Condition: Stable Disposition: HOME, SELF-CARE Additional Instructions: Return here immediately if you have high fever, shaking chills, severe abdominal pain or uncontrolled nausea/vomiting. You may take Tylenol as needed for d iscomfort. Return to the emergency department in 48 hours (Saturday) for a repeat quantitative beta hCG level to be drawn. Follow-up in the office on November [address] Deb Chao at [facility]. Referrals: BRANDON LYNN PA-C [Primary Care Provider] - Follow up as needed PIOTR CHAO MD [NO LOCAL MD] - Follow up as needed
[2019-11-27 14:38] VITALS: BP 103/64
== END 2019-11-27 14:38 | disposition home or self-care (01) ==
LOC: ER 09:09
DX: O20.9 Hemorrhage in early pregnancy, unspecified (principal); Z3A.00 Weeks of gestation of pregnancy not specified; Z79.899 Other long term (current) drug therapy
CPT/HCPCS: 36415; 76817; 80053; 81001; 81025; 84702; 85025; 99284

== ENCOUNTER 2019-11-29 12:38 | Emergency (ER) | payer MEDICAID ==
[2019-11-29 12:43] VITALS: BP 113/64
--- NOTE | 2019-11-29 13:38 | ER Document Report ---
HPI - HPI Patient complains to provider of: Lab redraw process of miscarriage Time Seen by Provider: 11/29/19 13:33 Onset: Last week Onset/Duration: Persistent Quality of pain: Cramping Context: 29-year-old female presented to ED for to get repeat hCG. She states she is in the process of a miscarriage. She states she was recently seen and told that the fetus had been expelled but she still had products of conception in the uterus and that she needed a repeat hCG today. Associated Symptoms: Other Exacerbated by: Denies Relieved by: Denies Similar symptoms previously: Yes Recently seen / treated by doctor: Yes - ROS ROS below otherwise negative: Yes - CONSTITUTIONAL Constitutional: DENIES: Fever, Chills - EENT EENT: DENIES: Sore Throat, Ear Pain, Nasal Drainage-Clear, Nasal Drainage- Purulent, Congestion, Eye problems - NEURO Neurology: DENIES: Headache, Weakness, Vision blurred, Dizzinesss / Vertigo - CARDIOVASCULAR Cardiovascular: DENIES: Chest pain - RESPIRATORY Respiratory: DENIES: Trouble Breathing, Coughing - GASTROINTESTINAL Gastrointestinal: DENIES: Abdominal Pain, Nausea, Patient vomiting, Diarrhea, Constipation, Black / Bloody Stools - URINARY Urinary: DENIES: Dysuria, Urgency, Frequency - REPRODUCTIVE Reproductive: DENIES: :, Postmenopausal, Abnormal bleeding / discharge Notes: States she is in the process of a miscarriage needs a repeat hCG. - MUSCULOSKELETAL Musculoskeletal: DENIES: Extremity pain, Back Pain, Neck Pain, Swelling - DERM Skin Color: Normal Skin Problems: None Past Medical History - General Information source: Patient - Social History Smoking Status: Never Smoker Cigarette use (# per day): No Chew tobacco use (# tins/day): No Smoking Education Provided: No Frequency of alcohol use: None Drug Abuse: None Lives with: Spouse/Significant other Family History: Reviewed & Not Pertinent Patient has suicidal ideation: No Patient has homicidal ideation: No - Past Medical History Cardiac Medical History: Reports: None Pulmonary Medical History: Reports: None EENT Medical History: Reports: None Neurological Medical History: Reports: None Endocrine Medical History: Reports: None Renal/ Medical History: Reports: None Malignancy Medical History: Reports: None GI Medical History: Reports: None Musculoskeletal Medical History: Reports None Skin Medical History: Reports None Psychiatric Medical History: Reports: Hx Depression Traumatic Medical History: Reports: None Infectious Medical History: Reports: None Surgical Hx: Negative Past Surgical History: Reports: None - Immunizations Hx Diphtheria, Pertussis, Tetanus Vaccination: Yes Vertical Provider Document - CONSTITUTIONAL Agree With Documented VS: Yes Exam Limitations: No Limitations - INFECTION CONTROL TRAVEL OUTSIDE OF THE [place].S. IN LAST 30 DAYS: No - HEENT HEENT: Atraumatic, Normal ENT Exam, Normocephalic, PERRLA - NECK Neck: Normal Inspection, Supple, Thyroid Normal - RESPIRATORY Respiratory: Breath Sounds Normal, No Respiratory Distress, Chest Non-Tender - CARDIOVASCULAR Cardiovascular: Regular Rate, Regular Rhythm - REPRODUCTIVE Notes: Patient states she was having a miscarriage came to get a repeat hCG. - MUSCULOSKELETAL/EXTREMETIES Musculoskeletal/Extremeties: MAEW, FROM, Non-Tender - NEURO Level of Consciousness: Awake, Alert, Appropriate Motor/Sensory: No Motor Deficit, No Sensory Deficit Deep Tendon Reflexes: 2+ - DERM Integumentary: Warm, Dry, No Rash Course - Re-evaluation Re-evalutation: 11/29/19 22:20 Results were discussed with patient and written report of labs given to patient to follow-up with primary care and/or Orth FACILITY SECURITY OFFICER. Patient verbalized understanding and agreement with treatment plan patient was with her at the time of the results. - Vital Signs Vital signs: Temp Pulse Resp BP Pulse Ox 98.9 F 89 18 113/64 100 11/29/19 12:42 11/29/19 12:42 11/29/19 12:42 11/29/19 12:42 11/29/19 12:42 Discharge - Discharge Clinical Impression: Miscarriage Condition: Stable Disposition: HOME, SELF-CARE Additional Instructions: Your hCG quant has dropped Was no pole or heartbeat noted on the last ultrasound. This means you have had a miscarriage. Please follow-up with the FACILITY SECURITY OFFICER for further testing. FOLLOW-UP CARE: If you have been referred to a physician for follow-up care, call the physicians office for an appointment as you were instructed or within the next two days. If you experience worsening or a significant change in your symptoms (very heavy bleeding with large clots of blood, passage of tissue, more severe abdominal / pelvic pain or cramping, feeling faint or severe weakness, fever, etc.), notify the physician immediately or return to the Emergency Department at any time for re-evaluation. OBSTETRIC-GYNECOLOGIC (OB-LABORATORY SPECIALIST) PHYSICIANS IN [place]: [facility] [address] [place] [address] [phone] For active duty and dependents diagnosed with a threatened or miscarriage, you should follow up in the following manner: Standard patients who have a local civilian provider should follow up with that provider. Patients of the Family Practice Clinic should call your Team Nurse at 8:00 am the following morning for further instructions. If you are neither a Standard patient nor a patient of the Family Practice Clinic, you should follow up at the [facility] ([facility]). Patients already enrolled in the [facility], Prime patients not assigned to the Family Practice Clinic, and Active Duty patients not assigned to Family Practice Clinic should report to the [facility] Lab at 8:00 am the next morning that the [facility] is open and then you will be seen in the OB Clinic at 11:00 am. Referrals: BRANDON LYNN PA-C [Primary Care Provider] - Follow up as needed [facility] [Provider Group] - Follow up as needed
== END 2019-11-29 15:09 | disposition home or self-care (01) ==
LOC: ER 12:38
DX: O03.9 Complete or unspecified spontaneous abortion without complication (principal)
CPT/HCPCS: 36415; 84702; 99284

== ENCOUNTER 2020-06-05 13:23 | Emergency (ER) | payer MEDICAID ==
[2020-06-05 13:38] VITALS: BP 120/74
--- NOTE | 2020-06-05 14:48 | ER Document Report ---
ED General - General Chief Complaint: Other Stated Complaint: DECREASED MOVEMENT/26 WKS Time Seen by Provider: 06/05/20 14:35 Notes: HPI: 29-year-old female 014 at 26 weeks by ultrasound who presents today stating some decreased movement for the last 2 days. No vaginal bleeding, cramping, dysuria, vomiting, or back pain. Her son tested positive for coronavirus yesterday. She has some minimal nasal congestion. Her TACK PULLER is primarily at [place]. ROS: See HPI All other review of systems reviewed and otherwise negative Reviewed vital signs and nursing note as charted by RN. PHYSICAL EXAM: CONSTITUTIONAL: Alert and oriented and responds appropriately to questions. Well-appearing; well-nourished HEAD: Normocephalic; atraumatic CARD: Regular rate and rhythm; no murmurs; symmetric distal pulses RESP: Normal chest excursion without splinting or tachypnea; breath sounds clear and equal bilaterally; no wheezes, no rhonchi, no rales ABD/GI: Normal bowel sounds; non-distended; gravid consistent with dates; nontender BACK: The back appears normal and is non-tender to palpation EXT: Normal ROM in all joints; non-tender to palpation; no edema SKIN: No acute lesions noted NEURO: CN 2-12 intact; 5/5 bilateral upper and lower extremity strength with sensation intact to light touch PSYCH: The patient's mood and manner are appropriate. Grooming and personal hygiene are appropriate. TRAVEL OUTSIDE OF THE [place]. IN LAST 30 DAYS: No - Related Data Allergies/Adverse Reactions: No Known Allergies Allergy (Verified 11/29/19 13:30) Past Medical History - Social History Smoking Status: Unknown if Ever Smoked Family History: Reviewed & Not Pertinent Psychiatric Medical History: Reports: Hx Depression - Immunizations Hx Diphtheria, Pertussis, Tetanus Vaccination: Yes Physical Exam - Vital signs Vitals: Temp Pulse Resp BP Pulse Ox 98.2 F 96 18 120/74 100 06/05/20 13:36 06/05/20 13:36 06/05/20 13:36 06/05/20 13:36 06/05/20 13:36 Course - Re-evaluation Re-evalutation: 06/05/20 14:47 Given the above history and physical examination, labor and delivery came down to do heart tones. Consistently around 130. I called and spoke to Dr. Santana the TACK PULLER on-call. She is aware of the full history and physical. She states that there is no need for monitoring given the 26 weeks gestation as well as no need of a nonstress test given less than 28 weeks gestation. Patient still has no abdominal pain. Patient will be discharged home with strict return precautions and follow-up with the TACK PULLER. - Vital Signs Vital signs: Temp Pulse Resp BP Pulse Ox 98.2 F 96 18 120/74 100 06/05/20 13:36 06/05/20 13:36 06/05/20 13:36 06/05/20 13:36 06/05/20 13:36 - Laboratory Results Critical Laboratory Results Reviewed: No Critical Results - Radiology Results Critical Radiology Results Reviewed: No Critical Results Discharge - Discharge Clinical Impression: Decreased movement Qualifiers: Fetus number: single or unspecified fetus Trimester: second trimester Qualified Code(s): O36.8120 - Decreased movements, second trimester, not applicable or unspecified Condition: Good Disposition: HOME, SELF-CARE Additional Instructions: Come back immediately for any abdominal pelvic pain, vaginal bleeding, persistent vomiting or flank pain, or any other acute problems. Please follow- up with your primary TACK PULLER as we have discussed. Please quarantine yourself until your results have returned from the coronavirus testing.
== END 2020-06-05 15:12 | disposition home or self-care (01) ==
LOC: ER 13:23
DX: O36.8120 Decreased fetal movements, second trimester, not applicable or unspecified (principal); O98.512 Other viral diseases complicating pregnancy, second trimester; U07.1 COVID-19; Z3A.26 26 weeks gestation of pregnancy
CPT/HCPCS: 99283; 0241U ×4; C9803